=== PATIENT | female | born 1965 | race Hispanic/Latino ===

== ENCOUNTER → 2018-06-12 | Outpatient (REF) | payer OTHER ==
[~2018-06-12] MED LIST: BACLOFEN20 MG PO; FIORICET PO; FIORICET/COD OR; IMITREX25 MG PO; IRON325 MG OR; MELOXICAM15 MG PO; METHOCARBAM500 MG PO; MULTI VIT PO; TOPAMAX25 MG OR
[2018-06-12 09:29] LABS: COCAINE NEGATIVE (NEGATIVE); METHADONE NEGATIVE (NEGATIVE); TETRAHYDROCANNABIONOL NEGATIVE (NEGATIVE)
[2018-06-12 09:30] LABS: BARBITURATES POSITIVE (NEGATIVE); OXCYCODONE NEGATIVE (NEGATIVE); TRICYLIC ANTIDEPRESSANTS NEGATIVE (NEGATIVE)
[2018-06-12 09:31] VITALS: BP 134/87
== END | disposition home or self-care (01) | DRG 950 ==
LOC: PAIN/MGT 09:14
PROVIDERS: ATTEND Anesthesiology Pain Medicine
DX: Z51.81 Encounter for therapeutic drug level monitoring (principal); Z79.891 Long term (current) use of opiate analgesic

== ENCOUNTER 2018-07-11 07:59 | Day surgery (SDC) | payer OTHER ==
[2018-07-11 14:07] VITALS: BP 108/64
== END 2018-07-11 12:05 | disposition home or self-care (01) | DRG 552 ==
LOC: ENDO 07:59 → ORM 09:30 → ENDO 12:05
PROVIDERS: ATTEND Anesthesiology Pain Medicine
PROC: 3E0U33Z Introduction of Anti-inflammatory into Joints, Percutaneous Approach (ICD-10-PCS; principal; 2018-07-11)
PROC: 3E0U3BZ Introduction of Anesthetic Agent into Joints, Percutaneous Approach (ICD-10-PCS; 2018-07-11)
DX: M46.1 Sacroiliitis, not elsewhere classified (principal); M54.5 Low back pain

== ENCOUNTER → 2018-07-25 | Day surgery (SDC) | payer OTHER ==
[2018-07-25 07:56] VITALS: BP 112/66
== END | disposition home or self-care (01) | DRG 552 ==
LOC: ORM 06:03
PROVIDERS: ATTEND Anesthesiology Pain Medicine
PROC: 3E0U33Z Introduction of Anti-inflammatory into Joints, Percutaneous Approach (ICD-10-PCS; principal; 2018-07-25)
PROC: 3E0U3BZ Introduction of Anesthetic Agent into Joints, Percutaneous Approach (ICD-10-PCS; 2018-07-25)
PROC: 3E0T3BZ Introduction of Anesthetic Agent into Peripheral Nerves and Plexi, Percutaneous Approach (ICD-10-PCS; 2018-07-25)
PROC: 3E0T33Z Introduction of Anti-inflammatory into Peripheral Nerves and Plexi, Percutaneous Approach (ICD-10-PCS; 2018-07-25)
DX: M46.1 Sacroiliitis, not elsewhere classified (principal); G58.9 Mononeuropathy, unspecified

== ENCOUNTER 2019-05-10 | Emergency (ER) | payer OTHER ==
[2019-05-10 14:42] LABS: HEMATOCRIT 36.2 % (37.0-47.0); IMMATURE GRANULOCYTES 0.3 % (0.0-5.0); MEAN CELL VOLUME 93.3 fL CALC (80.0-100.0); MEAN CORPUSCULAR HGB 30.9 pG CALC (26.0-32.0); MEAN CORPUSCULAR HGB CONC 33.1 g/L CALC (32.0-36.0); NEUT# 4.99 thou/uL (2.00-7.15); RED BLOOD COUNT 3.88 mill/uL (4.20-5.60); RED CELL DISTRI WIDTH 12.1 % (11.5-15.5)
[2019-05-10 14:43] LABS: URINE BILIRUBIN - DIPSTICK NEGATIVE (NEGATIVE); URINE BLOOD DIPSTICK TRACE-INTACT (NEGATIVE); URINE COLOR YELLOW; URINE GLUCOSE - DIPSTICK NEGATIVE (NEGATIVE); URINE KETONE NEGATIVE (NEGATIVE); URINE LEUK ESTERASE NEGATIVE (NEGATIVE); URINE NITRITE - DIPSTICK NEGATIVE (Negative); URINE PROTEIN - DIPSTICK NEGATIVE (NEG-TRACE); URINE UROBILINOGEN - DIPSTICK 0.2 E.U./dL (0.2)
[2019-05-10 14:56] LABS: BARBITURATES POSITIVE (NEGATIVE); COCAINE NEGATIVE (NEGATIVE); METHADONE NEGATIVE (NEGATIVE); OXCYCODONE NEGATIVE (NEGATIVE); TETRAHYDROCANNABIONOL NEGATIVE (NEGATIVE); TRICYLIC ANTIDEPRESSANTS NEGATIVE (NEGATIVE)
[2019-05-10 15:11] LABS: ALBUMIN 4.8 g/dL (3.2-5.0); ALKALINE PHOSPHATASE 106 u/l (38-126); ANION GAP 13 (6-22 (CALC)); BILIRUBIN, TOTAL 0.4 mg/dL (0.0-1.4); BUN 14 mg/dL (7-17); BUN/CREATININE RATIO 20 (12-20 (CALC)); CARBON DIOXIDE 32 mmol/l (22-30); CHLORIDE 97 mmol/l (95-108); CREATININE 0.7 mg/dL (0.5-1.0); GFR > 60 ML/MIN (>=60 (CALC)); GFR FOR AFR.AMER. > 60 ML/MIN (>=60 (CALC)); SGOT/AST 24 u/l (14-36); SODIUM 138 mmol/l (137-146); TOTAL PROTEIN 8.2 g/dL (6.3-8.2)
[2019-05-10 15:37] LABS: POTASSIUM 3.7 mmol/l (3.5-5.1)
== END 2019-05-10 16:05 | disposition home or self-care (01) | DRG 103 ==
DX: R51 Headache (principal); F17.210 Nicotine dependence, cigarettes, uncomplicated

== ENCOUNTER 2022-01-10 11:17 | Emergency (ER) | payer OTHER ==
[~2022-01-10] VITALS: Ht 157.5 cm; Wt 53.6 kg
[~2022-01-10 11:17] MED LIST changes: +CARAFATE PO; +DICLOFENAC50 MG PO; +FISH OIL1 CAP PO; +FUROSEMIDE20 MG PO; +HYDROXYCHLOR200 M1 PO; +METHOCARBAMOL500 MG PO; +METHOTREXATE S2.5 MG; +OMEPRAZOLE DR40 MG PO; +PILOCARPINE5 MG PO; +VITAMIN C + PO; +VITAMIN D PO
[2022-01-10 11:29] VITALS: BP 127/63
[2022-01-10 12:00] VITALS: BP 122/73
[2022-01-10 12:30] VITALS: BP 116/69
[2022-01-10 13:00] VITALS: BP 122/71
[2022-01-10] MEDS ORDERED: NAPROXEN DR375 M1 PO (13:03)
[2022-01-10 13:30] VITALS: BP 125/77
== END 2022-01-10 13:34 | disposition home or self-care (01) | DRG 563 ==
LOC: ED 11:17
DX: S93.401A Sprain of unspecified ligament of right ankle, initial encounter (principal); F17.200 Nicotine dependence, unspecified, uncomplicated; X50.0XXA Overexertion from strenuous movement or load, initial encounter

== ENCOUNTER → 2022-03-31 | Day surgery (SDC) | payer OTHER ==
[~2022-03-31] VITALS: Ht 157.5 cm; Wt 52.6 kg
[~2022-03-31] MED LIST changes: +NAPROXEN DR375 M1 PO; +OMEPRAZOLE20 MG PO
[2022-03-31 11:06] VITALS: BP 101/65
== END | disposition home or self-care (01) | DRG 384 ==
LOC: ORM 08:00 → ENDO 08:00
PROVIDERS: ATTEND Surgery
PROC: 0DJD8ZZ Inspection of Lower Intestinal Tract, Via Natural or Artificial Opening Endoscopic (ICD-10-PCS; principal; 2022-03-31)
PROC: 0DB78ZX Excision of Stomach, Pylorus, Via Natural or Artificial Opening Endoscopic, Diagnostic (ICD-10-PCS; 2022-03-31)
DX: K25.9 Gastric ulcer, unspecified as acute or chronic, without hemorrhage or perforation (principal); K44.9 Diaphragmatic hernia without obstruction or gangrene; K29.50 Unspecified chronic gastritis without bleeding; Z12.11 Encounter for screening for malignant neoplasm of colon; K64.8 Other hemorrhoids; M35.00 Sjogren syndrome, unspecified